=== PATIENT | male | born 1990 | race Caucasian/White ===

== ENCOUNTER 2022-06-27 14:15 | Outpatient (RCR) | payer BC, SELFPAY | END 2022-09-25 13:48 | disposition home or self-care (01) | PROVIDERS: PCP Family Medicine; Visit Provider Family Medicine | DX: L73.2 Hidradenitis suppurativa (principal); S82.90XA Unspecified fracture of unspecified lower leg, initial encounter for closed fracture; Z51.89 Encounter for other specified aftercare | CPT/HCPCS: 97110; 97140 ==

== ENCOUNTER 2025-07-10 19:08 | Emergency (ER) | payer OTHER, SELFPAY ==
--- OUTSIDE RECORDS SUMMARY | 2025-07-10 19:10 | XMS_ITS | Clinical Summary ---
Author Organization [employer] [facility] [employer] [facility] Address [facility] [place] [address] Care Team Providers Care Smoking Pipe Maker Name Role Phone Pcp, No Primary Care Provider Unavailabl e Allergies Active Allergy Reactions Criticality Noted Date Comments House Dust Runny Nose 06/30/2018 Sneezing Medications doxycycline monohydrate (MONODOX) 100 mg capsuleIndications: Abscess, axilla One oral twice daily 20 capsule 1 Active metFORMIN (GLUCOPHAGE) 500 mg tabletIndications:U ncontrolled type 2 diabetes mellitus with hyperglycemia (HC) Take 1 tablet by mouth 2 times daily with meals. Then in 2 weeks begin 2 oral twice daily with meals 360 tablet. 1 1 Active atorvastatin (LIPITOR) 20 mg tabletIndications:H yperlipidemia, unspecified hyperlipidemia type Take 1 tablet by mouth at bedtime. 90 tablet 1 1 Active Active Problems Problem Noted Date Diagnosed Date Type 2 diabetes mellitus wit hout complication, without long-term current use of insulin 12/08/2020 Morbid obesity with BMI of 45.0-49.9, adult /0 05/2018 Immunizations Immunization Administration Dates Next Due AMB Influenza, IIV3 (Age >=3 years)(Flu Clinic Only) 09/26/2010 DTaP 06/23/1995, 1,04/17/1990,02/16,1989 HIB HbOC (HibTITER) 01/21/1991,10/20/1990 Hepatitis A (Adult) 04/15/2013 Hepatitis A (Peds) 01/15/2008 Hepatitis B (Peds) 04/17/1990,02/16/1990, 989 Influenza, IIV3 (Age >=3 years) 09/26/20 10,09/29/2007,10/01/2006,10/04,10/01/2004,11/03/2003 Influenza, IIV4 12/05/2020 MMR 03/26/1999,10/20/1990 Meningococcal Vaccine (Menactra) 01/15/2008 Oral Polio Vaccine 06/23/1995,01/21/1991, 990 Td, Preservative Free (age >= 7 Years) 6,1989 Tdap 04/15/2013 Tuberculin (PPD) 06/23/1995 Varicella Vaccine 01/23/2004,12/23/2003 Family History Medical History Relation Name Comments Diabetes Maternal Uncle Diabetes Mother Heart Disease Mother Relation Name Status Comments Maternal Uncle Mother Alive Social History Tobacco Use Types Packs/Day Years Used Date Smoking Tobacco: Never Smokeless Tobacco: Never Tobacco Cessation:Counseling Given: Yes Alcohol Use Standard Drinks/Week Comments Yes 12 (1 standard drink = 0.6 oz pu re alcohol) occasional - weekends PHQ-2 Answer Date Recorded PHQ-2 Score 1 01/23/2019 Social Connections Answer Date Recorded Frequency of Communication with Friends and Fami ly Not on file 02/18/2022 Financial Resource Strain Answer Date R ecorded Difficulty of Paying Living Expenses Not on file 11/24/2021 Difficulty of Paying Living Expenses Not on file 11/24/2021 Sex and Gender Information Value Date Recorded Sex Assigned at Not on file Legal Sex Male 5:24 AM [employer] INSPECT[employer] Gender Identity Not on file Sexual Orientation Not on file 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 Not on file Not on file Not on file Obstetrics History Last Filed Vital Signs Vital Sign Reading Time Taken Comments Blood Pressure 124/79 12/08/2020 2:41 PM [employer] INSPECTOR Pulse 83 12/08/2020 2:41 PM [employer] INSPECTOR Temperature 36.7 C (98.1 F) 12/08/2020 2:41 PM [employer] INSPECTOR Respiratory Rate - - Oxygen Saturation 94% 12/08/2020 2:41 PM [employer]ATOR INSPECTOR Inhaled Oxygen Concentration - - Weight 133.9 kg (295 lb 3.2 oz) 021 12:56 PM [employer] INSPECTOR Height 183.8 cm (6' 0.36) 12/05/2020 1 2:56 PM [employer]ULATOR INSPECTOR shoes on Body Mass Index 39.64 12/05/2020 12:56 PM [employer] INSPECTOR Plan of Treatment Health Maintenance Due Date Last Done Comments HIV for age 15-65 2004 Hepatitis C screening for age 18-79 2007 Depression screening for age 12+ 07/01/2019 07/01/2018, 07/01/2018, 06/30/2018, Additional history exists BMI (ht and wt on same day) for age 18+ 12/05/2021 12/05/2020, 03/26/2019, 03/24/2019, Additional history exists Tetanus booster 04/15/2023 04/15/2013, 07/25, 1989 COVID-19 vaccine series ( season) 2024 Influenza Vaccine (#1) 2025 , 09/26/2010, 09/26/2010, Additional history exists Lipids for age 35-44 12/05/2025 12/05/2020, 12/05/2020, 06/30/2018, Additional history exists Hepatitis B series for 19+ Completed 04/17, 02/16/1990, 1989 Pneumococcal series for age 6-49 Aged Out No longer eligible based on patient's age to complete this topic Procedures Procedure Name Priority Date/Time Associated Diagnosis Comments LIPID PANEL W REFLEX MEASURED LDL Routine 12/05/2020 1:38 PM [employer] REGULATOR INSPECTOR Uncontrolled type 2 diabetes mellitus with hyperglycemia (HC) from Last 3 Months or Most Recently Relevant to Health Maintenance Results * (ABNORMAL) LIPID PANEL W REFLEX MEASURED LDL (12/05/2020 1:38 PM [employer] REGULATOR INSPECTOR) CHOLESTEROL,TOTAL 229(H) 100 - 199 mg/dL 12/05/2020 8:17 PM [employer]O REGULATOR INSPECTOR [facility] TRIGLYCERIDES 603(H) <150 mg/dL 12/05/2020 8:17 PM PIANO REGULATOR INSPECTOR [facility] HDL CHOLESTEROL 33(L) >40 mg/dL 8:17 PM PIANO REGULATOR INSPECTOR [facility] NON-HDL CHOLESTEROL 196(H) <145 mg/dl 12/05/2020 8:17 PM PIANO REGULATOR INSPECTOR [facility] CHOL/HDL RATIO 6.94(H) <4.50 12/05/2020 8:17 PM PIANO REGULATOR INSPECTOR [facility] LDL CHOLESTEROL 8:17 PM PIANO REGULATOR INSPECTOR [facility] Comment:Invalid LDL when Tri g >400, reflexed to measured LDL PROVIDER ORDERED STATUS RANDOM 12/05/2020 8:17 PM PIANO REGULATOR INSPECTOR [facility] Blood BLOOD SPECIMEN / Unknown Venipuncture / Unknown 12/05/2020 1:38 PM PIANO REGULATOR INSPECTOR 12/05/2020 1:41 PM PIANO REGULATOR INSPECTOR us Janes Samuels MD CHEMISTRY Final [facility] [address] [place] [address], [place] from Last 3 Months or Most Recently Relevant to Health Maintenance Insurance [facility] * Guarantor: [employer] Account Type Relation to Patient Date of Phone Billing Address [employer] Employer DO NOT USE [place] [id number] Care Teams Smoking Pipe Maker Relationship Specialty Start Date End Date Pcp, No . PCP - General 12/31/20
[2025-07-10 19:40] VITALS: BP 175/100; PULSE 89; RESP 18; TEMP 36.7; O2SAT 97; BMI 38.2
--- NOTE | 2025-07-10 19:51 | CRLHL7_ITS ---
For Patients: As a result of the Cures Act, medical imaging exams and procedure reports are released immediately into your electronic medical record. You may view this report before your referring provider. If you have questions, please contact your health care provider. INDICATION: Crush hand injury, caught in garage door TECHNIQUE: Hand radiograph 3 views left COMPARISON: None FINDINGS: Bone: A comminuted fracture is present involving the 3rd distal phalanx with transverse fracture lines along the phalangeal base and the distal phalangeal tuft. Joint: The carpal and metacarpal-phalangeal joints are unremarkable in appearance. The interphalangeal joints are normal in appearance. Soft tissue: Unremarkable. No radiopaque foreign bodies are seen. IMPRESSION: 1. A comminuted fracture is present involving the 3rd distal phalanx with transverse fracture lines along the phalangeal base and the distal phalangeal tuft. Dictated by Dangelo Hayes MD @ 07/10/2025 8:37:14 PM Dictated by: Dangelo Hayes MD @ 07/10/2025 20:37:20 (Electronically Signed)
--- NOTE | 2025-07-10 19:52 | ED_ITS ---
HPI - Extremity Injury (Upper) General Chief Complaint: Extremity Pain/Injury, Upper Stated Complaint: L hand injury Time Seen by Provider: 07/10/25 19:52 Source: patient Mode of arrival: ambulatory Limitations: no limitations History of Present Illness HPI narrative: 34-year-old male who comes in with a left middle finger injury after catching in the garage door. No other injuries, unsure when his last test was. History of diabetes but improved with significant weight loss. Related Data Home Medications ?Medication ?Instructions ?Recorded ?Confirmed No Known Home Medications 07/10/2506/24 Allergies Allergy/AdvReac Type Severity Reaction Status Date / Time No Known Allergies Allergy Unverified 05/21/22 14:32 PFSH PFSH Social History Smoking Status: Never smoker Exam Narrative: Exam Narrative: General: well nourished , NAD Head: Atraumatic and normocephalic ENT: External ears and external nose are normal Eyes: Conjunctiva clear, pupils are equal reactive, external ocular motions are intact Neck: Full spontaneous range of motion of the neck Lungs: No respiratory distress Musculoskeletal: 1 cm laceration over the proximal edge of the distal phalanx. Full flexion at the MCP and , DI P, PIP., Limited flexion at the MCP, DIP, and PIP but able to maintain flexion against resistance. Neurologic: No gross focal neurologic deficits Skin: No rashes Psych: Mood and affect are appropriate Const: Vital Signs, click to edit/add: Vital Signs - 24 hr 07/10/25 19:40 Temperature 98.0 F Pulse Rate [Pulse Oximeter] 89 Respiratory Rate 18 Blood Pressure [Ri ght Upper Arm] 175/100 H Pulse Oximetry 97 Oxygen Delivery Me thod Room Air Course Course ED Course: Reviewed primary care note from April 2022 when patient was seen for axillary hidradenitis. Patient seen examined, presents today with left middle finger laceration. Tendon function grossly intact although limited by pain. X-rays ordered, plan to repair and discharge. Reevaluation(s) Time of Reevaluation #1: 20:05 Reevaluation #1: X-ray independently interpreted by me with minimally displaced distal tuft fracture. Patient will be discharged on Keflex, follow-up with hand surgery. Laceration repair- 1 cm full-thickness laceration left middle finger palmar surface proximal distal phalanx. Risks and benefits discussed with patient, verbal consent was obtained. Lidocaine 1% with epinephrine was injected around the wound edges. Wounds were cleansed with wound cleanser, explored and no foreign bodies found. Edges were loosely approximated with 5 5 0 Ethilon simple interrupted sutures. Patient tolerated this well. Vital Signs Vital signs: Initial Vital Signs Temperature 98.0 F 07/10/25 19:40 Temperature Source Temporal Artery Scan 07/10/25 19:40 Pulse Rate 89 07/10/25 19:40 Respiratory Rate 18 07/10/25 19:40 Blood Pressure 175/100 H 07/10/25 19:40 Blood Pressure Mean 125 H 07/10/25 19:40 Blood Pressure Position Sitting 07/10/25 19:40 Pulse Oximetry 97 07/10/25 19:40 Oxygen Delivery Method Room Air 07/10/25 19:40 Vital Signs Temperature 98.0 F 07/10/25 19:40 Pulse Rate 89 07/10/25 19:40 Respiratory Rate 18 07/10/25 19:40 Blood Pressure 175/100 H 07/10/25 19:40 Pulse Oximetry 97 07/10/25 19:40 Oxygen Delivery Method Room Air 07/10/25 19:40 Temperature 98.0 F 07/10/25 19:40 Pulse Rate 89 07/10/25 19:40 Respiratory Rate 18 07/10/25 19:40 Blood Pressure 175/100 H 07/10/25 19:40 Pulse Oximetry 97 07/10/25 19:40 Oxygen Delivery Method Room Air 07/10/25 19:40 Discharge Plan Discharge Clinical Impression: Open fracture of distal phalanx of finger Patient Disposition: Home, Self-Care Condition: Stable Instructions: Finger Fracture (ED) Additional Instructions: Wash gently daily with soap and water, apply dressing and antibiotic ointment as desired. Follow-up with orthopedics in 2-3 days to re-assess for tendon injury. [facility] [phone] [facility] [phone] ([place]) If Orthopedics does not redo your sutures, they need to be removed in about 10 days. This can be at your primary care clinic or the emergency department. Activity Detail: Wear splint, do not over-extend the finger Prescriptions: No Action No Known Home Medications Follow Up/Referrals: Gonzalez Nichols MD [Primary Care Provider, Family Practice] Stand Alone Forms: [employer] Info Instructions
[2025-07-10] MEDS: TETANUS/DIPHTH/PERTUSSIS 0.5 ML SYRINGE IM (20:48)
== END 2025-07-10 21:03 | disposition home or self-care (01) ==
PROVIDERS: Emergency Provider Family Medicine; PCP Family Medicine
DX: S61.213A Laceration without foreign body of left middle finger without damage to nail, initial encounter (principal); W23.0XXA Caught, crushed, jammed, or pinched between moving objects, initial encounter; Z23 Encounter for immunization
CPT/HCPCS: 12001; 73130; 90471; 90715; 99283